=== PATIENT | female | born 1965 | race Caucasian/White ===

== ENCOUNTER → 2017-01-26 | Outpatient (CLI) | payer MEDICARE ==
--- NOTE | 2017-01-26 13:24 | RAD ---
DATE: 01/26/2017 EXAM: MAMMO LAN SCREENING BILATERAL HISTORY: Routine screening COMPARISON: None available This study was interpreted with the benefit of Computerized Aided Detection (CAD). FINDINGS: Breast Density: HETERO The breast parenchyma Is heterogeneouslyy dense, which could reduce sensitivity of mammography. Breast parenchyma level C. There is a nodular appearing mass or lesion identified in the lateral lower left breast and a small nodule identified in the right medial upper breast. IMPRESSION: Nodular appearing mass or lesion identified in the lateral lower left breast and a small nodule identified in the right medial upper breast. Recommend ultrasound of the right and left breast. BI-RADS CATEGORY: 0 INCOMPLETE: NEEDS ADDITIONAL IMAGING EVALUATION AND/OR PRIOR MAMMOGRAMS FOR COMPARISON. RECOMMENDED FOLLOW-UP: ADD ADDITIONAL IMAGING PQRS compliance statement: Patient information was entered into a reminder system with a target due date immediate recall for the next mammogram. Mammography is a sensitive method for finding small breast cancers, but it does not detect them all and is not a substitute for careful clinical examination. A negative mammogram does not negate a clinically suspicious finding and should not result in delay in biopsying a clinically suspicious abnormality. "Our facility is accredited by the [employer] Mammography Program."
--- NOTE | 2017-01-26 14:03 | RAD ---
Bone densitometry scan, 01/26/2017: History: Ovarian failure, screening The lumbar spine and right hip were examined utilizing a DEXA technique. The bone mineral density lumbar spine as measured from the L1-L4 levels is 1.25 g/sq cm. This yields a T score of 0.6 which is in the normal range. The right hip T score of 0.8 is also in the normal range. IMPRESSION: Normal bone mineral density measurements
== END | disposition home or self-care (01) ==
LOC: MAMMO 10:00
PROVIDERS: ATTEND Physician Assistant Medical
DX: Z12.31 Encounter for screening mammogram for malignant neoplasm of breast (principal); Z78.0 Asymptomatic menopausal state
CPT/HCPCS: 77063; 77080; G0202; 77067

== ENCOUNTER → 2017-05-03 | Outpatient (CLI) | payer MEDICARE ==
--- NOTE | 2017-05-03 14:38 | RAD ---
Right lower extremity venous Doppler ultrasound History: Intermittent right lower extremity swelling. Comparison: 11/16/2013. Procedure: Color Doppler, spectral Doppler, and grayscale images are obtained with and without compression in the area of the common femoral vein, superficial femoral vein - femoral vein junction, main femoral vein (superficial femoral vein) and popliteal vein. Veins of the proximal calf are also imaged. Findings: There is normal duplex flow, color flow and compressibility of all visualized vein segments. No evidence of deep venous thrombosis is present. Impression: No evidence of right lower extremity deep venous thrombosis.
== END | disposition home or self-care (01) ==
LOC: US 13:24
PROVIDERS: ATTEND Physician Assistant Medical
DX: I83.91 Asymptomatic varicose veins of right lower extremity (principal)
CPT/HCPCS: 93971

== ENCOUNTER → 2017-07-12 | Outpatient (CLI) | payer MEDICARE ==
--- NOTE | 2017-07-12 16:15 | RAD ---
DATE: 07/12/2017 EXAM: MAMMO LAN LYLE GARSIAAT, BREAST BILATERAL HISTORY: Follow-up breast nodules COMPARISON: 01/26/2017 This study was interpreted with the benefit of Computerized Aided Detection (CAD). The breast parenchyma is heterogeneously dense, which could reduce sensitivity of mammography. Breast parenchyma level C. FINDINGS: 2-D and 3-D tomosynthesis imaging was performed in CC and MLO projections. The 7 mm nodule seen posteromedially in the right breast on the previous study is unchanged. The larger, circumscribed, heterogeneous nodule seen posterolaterally in the left breast also appears to be unchanged, although it is incompletely visualized mammographically due to its far posterior addition. Internal areas of fatty density again favor the possibility that this is a fibroadenolipoma. No new breast opacities are seen. Benign type calcifications are present. No malignant microcalcifications have developed. Bilateral breast ultrasound, 07/12/2017: A targeted ultrasound exam of both breasts was performed in the areas where nodules were identified on 01/30/2017 exam. At the 1:00 location in the right breast approximately 9 cm from the nipple there is a smooth 8 x 4 x 3 mm hypoechoic nodule. It is unchanged since the previous study and is probably a fibroadenoma. At the 3:00 location in the left breast approximately 10 cm from the nipple there is a 2.2 x 1.4 x 1.2 cm oval-shaped heterogeneous nodule. Allowing for technical differences it is unchanged in size. Its margins are smooth. 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 IMPRESSION: Unchanged, probably benign bilateral breast nodules as described above. Follow-up bilateral breast ultrasound in 6 months and bilateral mammography at one year is suggested to confirm stability. BI-RADS CATEGORY: 3 PROBABLY BENIGN FINDING(S)-SHORT INTERVAL FOLLOW-UP SUGGESTED RECOMMENDED FOLLOW-UP: 6M 6 MONTH FOLLOW-UP PQRS compliance statement: Patient information was entered into a reminder system with a target due date for the next mammogram. Mammography is a sensitive method for finding small breast cancers, but it does not detect them all and is not a substitute for careful clinical examination. A negative mammogram does not negate a clinically suspicious finding and should not result in delay in biopsying a clinically suspicious abnormality. "Our facility is accredited by the [employer] Mammography Program."
== END | disposition home or self-care (01) ==
LOC: MAMMO 13:35
PROVIDERS: ATTEND Physician Assistant Medical
DX: R92.8 Other abnormal and inconclusive findings on diagnostic imaging of breast (principal)
CPT/HCPCS: 76641; 77066; G0279; 77062

== ENCOUNTER → 2018-01-12 | Outpatient (CLI) | payer MEDICARE ==
--- NOTE | 2018-01-12 11:55 | RAD ---
Bilateral breast ultrasound, 01/12/2018: History: Follow-up breast nodules A targeted ultrasound exam of both breasts was performed in areas where nodules were identified on the 07/12/2017 exam. In the right breast at the 1:00 location approximately 9 cm from the nipple there is a smooth 8 x 4 x 3 mm hypoechoic nodule. It is wider than tall. It is unchanged in size and configuration since 07/12/2017. Again, this most likely represents a fibroadenoma. In the left breast at the 3:00 location approximately 10 cm from the nipple there is an oval-shaped heterogeneous nodule measuring 2.2 cm in greatest diameter. Its margins are smooth. It has shown no significant change since 07/12/2017. IMPRESSION: Stable bilateral breast nodules. Sonographic follow-up in 6 months at the time of the patient's routine yearly mammograms is suggested. BI-RADS 3-probably benign findings
--- NOTE | 2018-01-12 15:29 | RAD ---
NECK SOFT TISSUE History: Right-sided lump inferior to the ear, occasional pain Comparison: None. Findings: Sonographic images of the site of concern on the right. Labeled as being inferior to the right ear, there is a 3.2 x 1.6 x 0.9 cm lymph node. Right parotid gland is estimated about 5.8 x 3.1 x 1.4 cm versus left 5.4 x 2.9 x 1.3 cm. There is questionable mild increased echogenicity of the right parotid gland compared with the left. Incidental note is made of thyroid nodules not fully evaluated. There is no discrete drainable fluid collection. Impression: 1. There is a nonspecific lymph node near the site of concern, normal sonographic architecture, not considered significantly enlarged. Right parotid gland is questionably slightly more echogenic and slightly larger than the left which is nonspecific. 2. Incidental note is made of thyroid nodules, not fully evaluated. Electronically signed by: Santy Polk MD (01/12/2018 3:26 PM) [id number]
== END | disposition home or self-care (01) ==
LOC: US 09:47
PROVIDERS: ATTEND Physician Assistant Medical
DX: N63.12 Unspecified lump in the right breast, upper inner quadrant (principal); N63.22 Unspecified lump in the left breast, upper inner quadrant; H93.8X1 Other specified disorders of right ear; E04.2 Nontoxic multinodular goiter
CPT/HCPCS: 76536; 76641

== ENCOUNTER → 2018-03-01 | Outpatient (CLI) | payer MEDICARE ==
--- NOTE | 2018-03-01 16:50 | RAD ---
PQRS Compliance Statement: One or more of the following individualized dose reduction techniques were utilized for this examination: 1. Automated exposure control 2. Adjustment of the mA and/or kV according to patient size 3. Use of iterative reconstruction technique CT SOFT TISSUE NECK WO CONTRST Clinical Indication: DISEASE OF THE SALIVARY GLAND. Parotid swelling. Swelling on right side of neck x2 months. Comparison: Soft tissue neck ultrasound January 12, 2018. TECHNIQUE: Helical CT imaging of the soft tissues of the neck is performed without IV contrast. Findings: Lack of IV contrast decreases sensitivity. No obvious abnormality of the posterior fossa. The visualized orbits are intact. Small left maxillary sinus mucous retention cyst or polyp. There is no air-fluid level. There is under pneumatization of the left mastoid air cells in comparison to the right. The parapharyngeal fat planes are preserved. Epiglottis and aryepiglottic folds are normal. There are subcentimeter bilateral cervical lymph nodes, there is no adenopathy. The attenuation of the right parotid gland is slightly greater than the left. The parotid glands are similar in size. There is no inflammation surrounding the parotid glands. A sialolith is not identified. The submandibular glands are symmetric. There is a 12 mm right thyroid nodule. There is a 17 mm left thyroid nodule, incompletely imaged. The lung apices are not imaged. The cervical spine alignment is maintained. There is degenerative spondylosis of C5/C6. Small ossification along the nuchal ligament. IMPRESSION: 1. The right parotid gland is slightly greater in attenuation than the contralateral side but is similar in size. There is no sialolith or intraparotid mass. There is no surrounding inflammation but cannot exclude low-level parotitis. 2. Bilateral thyroid nodules. Electronically signed by: Josemanuel Goldman MD (03/01/2018 4:47 PM) [id number]
--- NOTE | 2018-03-01 17:08 | RAD ---
THYROID ULTRASOUND History: Thyroid nodules. Comparison: Soft tissue neck ultrasound January 12, 2018. Technique: Multiple grayscale and color Doppler images of the thyroid gland were obtained. Findings: Measurements in length, AP (height), and transverse (width), respectively, unless otherwise stated. Isthmus measures 4 mm and is homogeneous. The right thyroid lobe measures 4.5 x 1.8 x 1.8 cm. In the mid right thyroid lobe there is a TR3 nodule measuring 1.7 x 1.1 x 1.3 cm. There is peripheral hypervascularity. The left thyroid lobe measures 4.5 x 1.6 x 1.6 cm. In the inferior left thyroid lobe there is a solid hypoechoic nodule that is taller than wide, smoothly marginated, and contains a tiny calcification. Classified as TR5. Nodule measures 2 x 1.5 x 1.7 cm. Color Doppler demonstrates peripheral hypervascularity. ACR Thyroid Imaging, Reporting And Data System (TI-RADS): White Paper Of The ACR TI-RADS Committee. Journal of the [employer], volume 14, issue 5, pages 587-595 (August 2016). IMPRESSION: 1. TR5 nodule of the inferior left thyroid lobe. Recommend further evaluation with ultrasound-guided FNA. 2. Dominant nodule of the mid right thyroid lobe. Recommend ultrasound follow-up in 12 months. Electronically signed by: Josemanuel Goldman MD (03/01/2018 5:05 PM) [id number]
== END | disposition home or self-care (01) ==
LOC: US 12:27
PROVIDERS: ATTEND Otolaryngology
DX: K11.9 Disease of salivary gland, unspecified (principal)
CPT/HCPCS: 70490; 76536

== ENCOUNTER → 2018-03-14 | Outpatient (CLI) | payer MEDICARE ==
[2018-03-15 13:43] LABS: FREE T4 1.13 ng/dL (0.76-1.46); THYROID STIM HORMONE (TSH) 0.806 uIU/mL (0.358-3.740)
== END | disposition home or self-care (01) ==
LOC: LAB 13:10
PROVIDERS: ATTEND Otolaryngology
DX: E04.1 Nontoxic single thyroid nodule (principal)
CPT/HCPCS: 84439; 84443

== ENCOUNTER 2018-06-05 15:32 | Emergency (ER) | payer MEDICARE ==
[~2018-06-05] VITALS: Ht 152.4 cm; Wt 104.3 kg
[2018-06-05] MEDS ORDERED: IV NORMAL SALINE 1,000ML 1,000 ML IV ONE (16:30)
[2018-06-05 16:41] LABS: BASO # 0.1 x10^3/uL (0.0-0.2); BASO % 1 % (0-3); EOS # 0.1 x10^3/uL (0.0-0.7); EOS % 1 % (0-3); HEMATOCRIT 38.6 % (36.0-47.0); HEMOGLOBIN 12.4 g/dL (12.0-15.5); LYMPH # 0.5 x10^3/uL (1.0-4.8); LYMPH % 6 % (24-48); MEAN CORPUSCULAR HEMOGLOBIN 25 pg (25-35); MEAN CORPUSCULAR HGB CONC 32 g/dL (31-37); MEAN CORPUSCULAR VOLUME 77 fL (79-100); MONO # 0.8 x10^3/uL (0.0-1.1); MONO % 8 % (0-9); NEUT # 8.1 x10^3uL (1.8-7.7); NEUT % 84 % (31-73); PLATELET COUNT 350 x10^3/uL (140-400); RED BLOOD COUNT 5.05 x10^6/uL (3.50-5.40); RED CELL DISTRIBUTION WIDTH 16.6 % (11.5-14.5); WHITE BLOOD COUNT 9.6 x10^3/uL (4.0-11.0)
[2018-06-05] MEDS ORDERED: ONDANSETRON PF 4 MG/2 ML VIAL. IV ONE (16:45)
[2018-06-05 16:54] LABS: ALBUMIN 3.8 g/dL (3.4-5.0); ALBUMIN/GLOBULIN RATIO 0.8 (1.0-1.7); CALCIUM 9.3 mg/dL (8.5-10.1); CREATININE 0.6 mg/dL (0.6-1.0); GFR 104.2; POTASSIUM 4.5 mmol/L (3.5-5.1); TOTAL BILIRUBIN 0.4 mg/dL (0.2-1.0); TOTAL PROTEIN 8.4 g/dL (6.4-8.2)
--- NOTE | 2018-06-05 16:59 | PHYS DOC ---
Past History Past Medical History: Asthma Past Surgical History: Knee Replacement Alcohol Use: None Drug Use: None Adult General Chief Complaint Chief Complaint: FEVER HPI HPI 53-year-old female presents with fever for one half days. The patient also has a nonproductive cough, body aches, headache. Patient has been around several people were diagnosed with influenza. She has taken 3 g of Tylenol today but still has a fever of 102. She denies dysuria or increased urine frequency. Review of Systems Review of Systems Constitutional: Fever, chills[] Eyes: Denies change in visual acuity, redness, or eye pain [] HENT: Nasal congestion[] Respiratory: Cough without shortness of breath [] Cardiovascular: No additional information not addressed in HPI [] GI: Nausea, one episode of vomiting. Denies abdominal pain bloody stools or diarrhea [] : Denies dysuria or hematuria [] Musculoskeletal: Denies back pain or joint pain [] Integument: Denies rash or skin lesions [] Neurologic: Denies headache, focal weakness or sensory changes [] Endocrine: Denies polyuria or polydipsia [] All other systems were reviewed and found to be within normal limits, except as documented in this note. Current Medications Current Medications Current Medications Medications (Trade) Dose Ordered Sig/Chay Start Time Stop Time Status Last Admin Dose Admin Ondansetron HCl (Zofran) 4 mg 1X ONCE 06/05/18 16:45 06/05/18 16:46 DC 06/05/18 16:29 4 MG Sodium Chloride 1,000 ml @ 1,000 mls/hr 1X ONCE 06/05/18 16:30 06/05/18 17:29 06/05/18 16:30 1,000 MLS/HR Allergies Allergies Allergies Coded Allergies Type Severity Reaction Last Updated Verified Sulfa (Sulfonamide Antibiotics) Allergy Intermediate RASH 06/05/18 Yes aspirin Allergy Intermediate Rash 06/05/18 Yes Physical Exam Physical Exam Constitutional: Well developed, well nourished, no acute distress, non-toxic appearance. [] HENT: Normocephalic, atraumatic, bilateral external ears normal, oropharynx moist, no oral exudates, nose congested. [] Eyes: PERRLA, EOMI, conjunctiva normal, no discharge. [] Neck: Normal range of motion, no tenderness, supple, no stridor. [] Cardiovascular:Heart rate regular rhythm, no murmur [] Lungs & Thorax: Bilateral breath sounds clear to auscultation [] Abdomen: Bowel sounds normal, soft, no tenderness, no masses, no pulsatile masses. [] Skin: Warm, dry, no erythema, no rash. [] Back: No tenderness, no CVA tenderness. [] Extremities: No tenderness, no cyanosis, no clubbing, ROM intact, no edema. [] Neurologic: Alert and oriented X 3, normal motor function, normal sensory function, no focal deficits noted. [] Psychologic: Affect normal, judgement normal, mood normal. [] Current Patient Data Vital Signs Vital Signs Date Time Temp Pulse Resp B/P (MAP) Pulse Ox O2 Delivery O2 Flow Rate FiO2 06/05/18 16:12 100.3 120 18 96 Room Air Lab Results Laboratory Tests Test 06/05/18 16:25 White Blood Count 9.6 x10^3/uL (4.0-11.0) Red Blood Count 5.05 x10^6/uL (3.50-5.40) Hemoglobin 12.4 g/dL (12.0-15.5) Hematocrit 38.6 % (36.0-47.0) Mean Corpuscular Volume 77 fL (79-100) L Mean Corpuscular Hemoglobin 25 pg (25-35) Mean Corpuscular Hemoglobin Concent 32 g/dL (31-37) Red Cell Distribution Width 16.6 % (11.5-14.5) H Platelet Count 350 x10^3/uL (140-400) Neutrophils (%) (Auto) 84 % (31-73) H Lymphocytes (%) (Auto) 6 % (24-48) L Monocytes (%) (Auto) 8 % (0-9) Eosinophils (%) (Auto) 1 % (0-3) Basophils (%) (Auto) 1 % (0-3) Neutrophils # (Auto) 8.1 x10^3uL (1.8-7.7) H Lymphocytes # (Auto) 0.5 x10^3/uL (1.0-4.8) L Monocytes # (Auto) 0.8 x10^3/uL (0.0-1.1) Eosinophils # (Auto) 0.1 x10^3/uL (0.0-0.7) Basophils # (Auto) 0.1 x10^3/uL (0.0-0.2) Sodium Level 136 mmol/L (136-145) Potassium Level 4.5 mmol/L (3.5-5.1) Chloride Level 99 mmol/L (98-107) Carbon Dioxide Level 27 mmol/L (21-32) Anion Gap 10 (6-14) Blood Urea Nitrogen 9 mg/dL (7-20) Creatinine 0.6 mg/dL (0.6-1.0) Estimated GFR (Cockcroft-Gault) 104.2 BUN/Creatinine Ratio 15 (6-20) Glucose Level 101 mg/dL (70-99) H Calcium Level 9.3 mg/dL (8.5-10.1) Total Bilirubin 0.4 mg/dL (0.2-1.0) Aspartate Amino Transferase (AST) 22 U/L (15-37) Alanine Aminotransferase (ALT) 13 U/L (14-59) L Alkaline Phosphatase 97 U/L (46-116) Total Protein 8.4 g/dL (6.4-8.2) H Albumin 3.8 g/dL (3.4-5.0) Albumin/Globulin Ratio 0.8 (1.0-1.7) L EKG EKG [] Radiology/Procedures Radiology/Procedures [] Course & Med Decision Making Course & Med Decision Making Pertinent Labs and Imaging studies reviewed. (See chart for details) Patient's labs are unremarkable. Her influenza was negative. The patient has been given 1 L normal saline and 4 mg of Zofran [] Dragon Disclaimer Dragon Disclaimer This electronic medical record was generated, in whole or in part, using a voice recognition dictation system. Departure Departure: Impression: Primary Impression: Viral syndrome Disposition: HOME, SELF-CARE Condition: STABLE Referrals: MARY MILLS (PCP) Patient Instructions: Viral Syndrome GILBERTO AMBROSE DO Jun 05, 2018 16:59
[2018-06-05 17:06] LABS: INFLUENZA A PATIENT NEGATIVE (NEGATIVE); INFLUENZA B PATIENT NEGATIVE (NEGATIVE)
--- NOTE | 2018-06-05 17:09 | RAD ---
Exam performed: 2 views of the chest. Indication: Fever, cough, possible influenza Date of Service: 06/05/2018 4:45 PM . Comparison : None available Findings: PA and lateral radiographs of the chest reveal a normal cardiomediastinal contour. The lungs are clear. No pleural fluid is seen. The visualized osseous structures are unremarkable. Impression: No acute cardiopulmonary process seen. Electronically signed by: Kajal Ott MD (06/05/2018 5:06 PM) [place] [id number]
[2018-06-05] MEDS ORDERED: diphenhydrAMINE 50 MG/ML VIAL IVP ONE (18:15)
[2018-06-05] MEDS ORDERED: METOCLOPRAMIDE HCL 10 MG/2 ML VIAL. IV ONE (18:15)
[2018-06-05 19:01] VITALS: BP 178/76
--- NOTE | 2018-06-06 14:16 | EKG ---
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
== END 2018-06-05 19:00 | disposition home or self-care (01) ==
LOC: ER 15:32
DX: B34.9 Viral infection, unspecified (principal); R11.2 Nausea with vomiting, unspecified; J45.909 Unspecified asthma, uncomplicated; Z88.2 Allergy status to sulfonamides; Z88.6 Allergy status to analgesic agent
CPT/HCPCS: 36415; 71046; 80053; 85025; 87040; 87804; 93005; 96361; 96374; 96375; 99284; J1200; J2405; J2765; J7030

== ENCOUNTER → 2019-02-13 | Outpatient (CLI) | payer MEDICARE ==
--- NOTE | 2019-02-13 10:24 | RAD ---
DATE: 02/13/2019 EXAM: MAMMO LAN SCREENING BILATERAL HISTORY: Routine screening COMPARISON: 01/26/2017, 07/12/2017 mammographic exams This study was interpreted with the benefit of Computerized Aided Detection (CAD). Breast Density: HETERO The breast parenchyma is heterogenously dense, which could reduce sensitivity of mammography. Breast parenchyma level C. FINDINGS: Small mass at the right inner breast at the posterior aspect is unchanged. Asymmetry at the posterior aspect of the left upper breast is stable. No new mass. No suspicious calcification or distortion. IMPRESSION: Stable BI-RADS CATEGORY: 1 NEGATIVE RECOMMENDED FOLLOW-UP: 12M 12 MONTH FOLLOW-UP PQRS compliance statement: Patient information was entered into a reminder system with a target due date for the next mammogram. Mammography is a sensitive method for finding small breast cancers, but it does not detect them all and is not a substitute for careful clinical examination. A negative mammogram does not negate a clinically suspicious finding and should not result in delay in biopsying a clinically suspicious abnormality. "Our facility is accredited by the [employer] Mammography Program."
== END | disposition home or self-care (01) ==
LOC: MAMMO 09:38
PROVIDERS: ATTEND Physician Assistant Medical
DX: Z12.31 Encounter for screening mammogram for malignant neoplasm of breast (principal); N64.89 Other specified disorders of breast; N63.10 Unspecified lump in the right breast, unspecified quadrant
CPT/HCPCS: 77063; 77067

== ENCOUNTER 2019-03-28 12:35 | Inpatient (IN) | payer MEDICARE ==
[~2019-03-28] VITALS: Ht 162.6 cm; Wt 108.9 kg
[2019-03-28] MEDS ORDERED: IPRATRPIUM/ALBUTEROL 0.5/2.5MG 3 ML NEBU. ONE (12:41)
[2019-03-28] MEDS ORDERED: methylPREDNISolone SOD SUCC PF 125 MG/2 ML VIAL. IV ONE (13:00)
[2019-03-28] MEDS ORDERED: IPRATRPIUM/ALBUTEROL 0.5/2.5MG 3 ML NEBU. NEB ONE ×2 (13:00→13:15)
--- NOTE | 2019-03-28 13:02 | PHYS DOC ---
Past History Past Medical History: Asthma, Other (leukemia) Past Surgical History: Knee Replacement Alcohol Use: None Drug Use: None Adult General Chief Complaint Chief Complaint: SHORTNESS OF BREATH [facility] HPI Patient is a 54-year-old female who presented to ER today for evaluation of trouble breathing since yesterday evening. Patient has history asthma, she had used her treatment home but did not get any better. Patient is not on oxygen at home. She is a nonsmoker. She denies any fever. Patient denies any chest pain. No abdominal pain, no nausea vomiting. All other ROS is negative unless otherwise noted in HPI Review of Systems Review of Systems See above Current Medications Current Medications Current Medications Medications (Trade) Dose Ordered Sig/Chay Start Time Stop Time Status Last Admin Dose Admin Albuterol/ Ipratropium (Duoneb) 3 ml 1X ONCE 03/28/19 13:00 03/28/19 13:01 DC Methylprednisolone Sodium Succinate (SOLU-Medrol 125MG VIAL) 125 mg 1X ONCE 03/28/19 13:00 03/28/19 13:01 DC Allergies Allergies Allergies Coded Allergies Type Severity Reaction Last Updated Verified Sulfa (Sulfonamide Antibiotics) Allergy Intermediate RASH 06/05/18 Yes aspirin Allergy Intermediate Rash 06/05/18 Yes Physical Exam Physical Exam See above Constitutional: Well developed, well nourished, MILD acute distress, non-toxic appearance. [] HENT: Normocephalic, atraumatic, bilateral external ears normal, oropharynx moist, no oral exudates, nose normal. [] Eyes: PERRLA, EOMI, conjunctiva normal, no discharge. [] Neck: Normal range of motion, no tenderness, supple, no stridor. [] Cardiovascular:Heart rate regular rhythm, no murmur [] Lungs & Thorax: diffused wheezing, with decreased air movement, mild respiratory distress, speak in words. Abdomen: Bowel sounds normal, soft, no tenderness, no masses, no pulsatile masses. [] Skin: Warm, dry, no erythema, no rash. [] Back: No tenderness, no CVA tenderness. [] Extremities: No tenderness, no cyanosis, no clubbing, ROM intact, no edema. [] Neurologic: Alert and oriented X 3, normal motor function, normal sensory function, no focal deficits noted. [] Psychologic: Affect normal, judgement normal, mood normal. [] EKG EKG [] Radiology/Procedures Radiology/Procedures [][place] [id number] IMAGING REPORT Signed PATIENT: ALLEN RAE ACCOUNT: [id number] : 1965 LOCATION: ER AGE: 54 SEX: F EXAM STATUS: REG ER ORD. PHYSICIAN: JESSICA LEE DO REASON: soa, cough PROCEDURE: CHEST AP ONLY EXAM: Chest, single view. HISTORY: Shortness of breath. Cough. COMPARISON: 06/05/2018 FINDINGS: A frontal view of the chest is obtained. There is diffuse interstitial infiltrate. There is no consolidation, pleural effusion or pneumothorax. The heart is normal in size. IMPRESSION: Diffuse interstitial infiltrate. Electronically signed by: Kenia Bonilla MD (03/28/2019 1:25 PM) [facility] DICTATED AND SIGNED BY: KENIA BONILLA MD DATE: 03/28/19 1325 CC: JESSICA LEE DO; MARY MILLS ~ Course & Med Decision Making Course & Med Decision Making Pertinent Labs and Imaging studies reviewed. (See chart for details) [] Dragon Disclaimer Dragon Disclaimer This electronic medical record was generated, in whole or in part, using a voice recognition dictation system. Departure Departure: Impression: Primary Impression: Asthma Additional Impressions: Pneumonia and influenza Influenza B Disposition: ADMITTED INPATIENT Admitting Physician: Nancy Strauss Condition: STABLE Referrals: MARY MILLS (PCP) Problem Qualifiers JESSICA LEE DO Mar 28, 2019 13:02
[2019-03-28 13:09] LABS: BASO # 0.1 x10^3/uL (0.0-0.2); BASO % 1 % (0-3); EOS # 0.2 x10^3/uL (0.0-0.7); EOS % 1 % (0-3); HEMATOCRIT 38.3 % (36.0-47.0); HEMOGLOBIN 12.3 g/dL (12.0-15.5); LYMPH # 1.2 x10^3/uL (1.0-4.8); LYMPH % 9 % (24-48); MEAN CORPUSCULAR HEMOGLOBIN 25 pg (25-35); MEAN CORPUSCULAR HGB CONC 32 g/dL (31-37); MEAN CORPUSCULAR VOLUME 78 fL (79-100); MONO # 0.9 x10^3/uL (0.0-1.1); MONO % 7 % (0-9); NEUT # 10.5 x10^3uL (1.8-7.7); NEUT % 82 % (31-73); PLATELET COUNT 345 x10^3/uL (140-400); RED CELL DISTRIBUTION WIDTH 15.8 % (11.5-14.5); WHITE BLOOD COUNT 12.8 x10^3/uL (4.0-11.0)
[2019-03-28] MEDS ORDERED: ACETAMINOPHEN 325 MG TABLET PO ONE (13:12)
[2019-03-28 13:14] LABS: CALCIUM 8.6 mg/dL (8.5-10.1); CREATININE 0.7 mg/dL (0.6-1.0); GFR 86.9; POTASSIUM 4.2 mmol/L (3.5-5.1)
[2019-03-28 13:19] LABS: ALBUMIN 3.5 g/dL (3.4-5.0); ALBUMIN/GLOBULIN RATIO 0.8 (1.0-1.7); MAGNESIUM 1.8 mg/dL (1.8-2.4); TOTAL BILIRUBIN 0.5 mg/dL (0.2-1.0); TOTAL PROTEIN 8.1 g/dL (6.4-8.2)
[2019-03-28] MEDS ORDERED: ONDANSETRON PF 4 MG/2 ML VIAL. ONE (13:28)
--- NOTE | 2019-03-28 13:28 | RAD ---
EXAM: Chest, single view. HISTORY: Shortness of breath. Cough. COMPARISON: 06/05/2018 FINDINGS: A frontal view of the chest is obtained. There is diffuse interstitial infiltrate. There is no consolidation, pleural effusion or pneumothorax. The heart is normal in size. IMPRESSION: Diffuse interstitial infiltrate. Electronically signed by: Kenia Bustillos MD (03/28/2019 1:25 PM) [place] [id number]
[2019-03-28] MEDS ORDERED: IV NORMAL SALINE 1,000ML 1,000 ML IV ONE (13:30)
[2019-03-28] MEDS ORDERED: ONDANSETRON PF 4 MG/2 ML VIAL. IVP ONE (13:30)
[2019-03-28] MEDS ORDERED: ACETAMINOPHEN 500 MG TABLET PO ONE (13:30)
[2019-03-28 14:14] LABS: INFLUENZA A PATIENT NEGATIVE (NEGATIVE); INFLUENZA B PATIENT POSITIVE (NEGATIVE)
[2019-03-28] MEDS ORDERED: OSELTAMIVIR 75 MG CAPSULE PO ONE (14:30)
[2019-03-28] MEDS: IV NORMAL SALINE 1,000ML 1,000 ML IV SCH (15:01)
[2019-03-28] MEDS ORDERED: ONDANSETRON PF 4 MG/2 ML VIAL. IV PRN (15:15)
[2019-03-28 16:23] VITALS: BP 110/60
--- NOTE | 2019-03-28 16:30 | NUR ---
The patient, ALLEN RAE, 54 y/o, F admitted by VENITA LANDRUM MD, was given written information regarding hospital policies, unit procedures and contact persons. Valuables were checked and left in room. Patient arrived from ER to room 103, alert and oriented x3. Able to make needs known, states she is feeling much better since arrival to ER. Patient resting in bed at this time and denies complaints of pain or discomfort at this time. Patient able to ambulate independelty to restroom without difficulty. Continues to require O2 therapy due to increased SOA. Awaiting for Dr Landrum to see patient.
[2019-03-28] MEDS ORDERED: FAMO40TA4 PO (16:36)
[2019-03-28] MEDS ORDERED: CYCL-331 PO (16:36)
[2019-03-28] MEDS ORDERED: TRAZ-125 PO (16:36)
[2019-03-28] MEDS ORDERED: PROAIR RESPICL90 MCG INH (16:36)
[2019-03-28] MEDS ORDERED: ALBU2.5V5 INH (16:36)
[2019-03-28] MEDS ORDERED: ALBUTEROL SULFATE 2.5 MG/3 ML NEBU. INH PRN (17:45)
--- NOTE | 2019-03-28 18:45 | HP ---
ADMIT DATE: 03/28/2019 HISTORY OF PRESENT ILLNESS: The patient is a 54-year-old female patient who came to the Emergency Room complaining of feeling generally unwell, was started last night, did have cough, shortness of breath, fever, chest pain. She is known to have bronchial asthma. She used her treatment at home, but did not get any better. She is not on oxygen. She is a nonsmoker. She did have fever, but denied any nausea or vomiting. She was evaluated in the Emergency Room and on arrival, her temperature was up to 103 Fahrenheit. She was noted to have leukocytosis. Her chemistry was unremarkable. Lactic acid was only 1.5. Her influenza B was positive. The patient stated that she does not get flu shot. Her chest x-ray showed that she has also diffuse interstitial infiltrate. There is no consolidation, pleural effusion or pneumothorax. The heart size is normal. The patient was admitted with influenza B, community-acquired pneumonia and bronchial asthma exacerbation and was started on Tamiflu as well as IV Levaquin. She was given Solu-Medrol 125 mg together with albuterol and Atrovent and levofloxacin and Tamiflu and was admitted to continue with IV fluid to continue all this treatment. PAST MEDICAL HISTORY: Significant for bronchial asthma, generalized osteoarthritis. PAST SURGICAL HISTORY: Significant for right total knee arthroplasty, total abdominal hysterectomy, carpal tunnel release, trigger finger surgery, appendectomy, esophagogastroduodenoscopy and colonoscopy. ALLERGIES: She is allergic to ASPIRIN AND SULFA DRUGS. MEDICATIONS: She is currently on following medications: She is on albuterol sulfate by nebulizer and inhaler 2 puffs 4 times a day, cyclobenzaprine 10 mg at bedtime, trazodone 100 mg at bedtime. She is on famotidine 40 mg daily for gastroesophageal reflux disease. FAMILY HISTORY: She has 2 sisters and 3 brothers, 2 older brothers and 1 younger brother and 1 older sister and they seemed to be healthy. Her father at age of 74 because of asthma and congestive heart failure. Mother at age of 69 because of CVA and intracranial hemorrhage. SOCIAL HISTORY: She is , has 2 sons and 2 daughters. She never smoked, does not drink alcohol or use any recreational drugs. 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 However, she is currently on disability. REVIEW OF SYSTEMS: The patient denies any blurring of vision, cataract, glaucoma or macular degeneration. Denied any earache, tinnitus or sensorineural deafness. Denied any nosebleeds, stuffy nose or postnasal drip. Denied any sore throat, sore tongue, toothache, hoarseness of voice or difficulty swallowing. Denied any hematemesis, melena or hematochezia. Denied any dysuria, frequency or hematuria. Denied any orthopnea, paroxysmal nocturnal dyspnea. She did have cough with scanty sputum. Did have chills, rigors or fever, but denied any dizziness or lightheadedness. PHYSICAL EXAMINATION: GENERAL: On arrival to the Emergency Room, she looked well and was clearly in no apparent respiratory distress. No pallor, jaundice, cyanosis or thyromegaly. No jugular venous distention. No limb edema. VITAL SIGNS: Her heart rate was 130, blood pressure was 134/62, temperature was 103, respiratory rate was 24 and oxygen saturation was 86% on room air. HEAD, EYES, EARS, NOSE AND THROAT: Showed normocephalic, atraumatic. NECK: Supple. HEART: Showed normal first and second heart sounds with no gallop, rub or murmur. CHEST: Clear to auscultation. No crepitation or rhonchi. ABDOMEN: Distended, soft. The chest showed central trachea, equal bilateral expansion, air entry, vesicular sounds with diffuse wheezing and decreased air movement and mild respiratory distress. She was unable to finish sentence when she arrived to the Emergency Room. ABDOMEN: Soft, nontender. No guarding or rigidity. No organomegaly. All hernial orifice intact. Bowel sounds normal. NEUROLOGIC: She was alert, oriented x 3 with normal motor and sensory function. Her affect, judgment and mood abnormal. She has had an EKG, which apparently showed sinus tachycardia. Her chest x-ray showed that there is diffuse interstitial infiltrate. Her lab work showed her white cell count to be 12,800, hemoglobin 12.3, hematocrit 38, MCV 78 and platelet count 345,000. Her chemistry showed a serum sodium 135, potassium 4.2, chloride 98, bicarbonate 29, anion gap of 8, BUN 11, creatinine 0.7, estimated GFR was 87 mL per minute. Her glucose was 102, calcium was 8.6, magnesium was 1.8, lactic acid was 1.5. Total bilirubin, AST, ALT, alkaline phosphatase were normal. Total protein was 8.1, albumin 3.5 and her influenza A was negative. Influenza B was positive. ASSESSMENT AND PLAN: The patient was admitted with diagnosis of influenza B community-acquired pneumonia as well as asthma exacerbation. The patient will be continued on levofloxacin, Tamiflu, steroids and inhalers together with her other home medications. VENITA LANDRUM MD DR: AGUSTINA/ernesto JOB#: [id number] / [id number]
[2019-03-28 19:02] VITALS: BP 145/79
--- NOTE | 2019-03-28 19:32 | NUR ---
Dr LANDRUM AWARE OF POSITIVE SEPSIS SCREEN.
[2019-03-28] MEDS: LACTOBACILLUS RHAMNOSUS GG 1 CAPSULE. PO SCH (20:29)
[2019-03-28] MEDS: OSELTAMIVIR 75 MG CAPSULE PO SCH (20:30)
[2019-03-28] MEDS: traZODone 100 MG TABLET. PO SCH (20:30)
[2019-03-28] MEDS: CYCLOBENZAPRINE 10 MG TABLET. PO SCH (20:30)
[2019-03-28] MEDS: methylPREDNISolone SOD SUCC PF 40 MG/ML VIAL. IV SCH (21:46)
[2019-03-28 22:43] VITALS: BP 137/76
[2019-03-29] MEDS: IPRATRPIUM/ALBUTEROL 0.5/2.5MG 3 ML NEBU. NEB SCH ×5 (00:37→21:52)
[2019-03-29] MEDS: IV NORMAL SALINE 1,000ML 1,000 ML IV SCH ×2 (00:40→09:07)
[2019-03-29] MEDS: methylPREDNISolone SOD SUCC PF 40 MG/ML VIAL. IV SCH (05:15)
[2019-03-29 05:30] VITALS: BP 155/77
[2019-03-29 07:41] LABS: HEMATOCRIT 36.7 % (36.0-47.0); HEMOGLOBIN 11.9 g/dL (12.0-15.5); RED BLOOD COUNT 4.68 x10^6/uL (3.50-5.40); RED CELL DISTRIBUTION WIDTH 15.8 % (11.5-14.5); WHITE BLOOD COUNT 10.9 x10^3/uL (4.0-11.0)
[2019-03-29 08:05] LABS: ALBUMIN 3.1 g/dL (3.4-5.0); ALBUMIN/GLOBULIN RATIO 0.7 (1.0-1.7); CALCIUM 8.5 mg/dL (8.5-10.1); CREATININE 0.6 mg/dL (0.6-1.0); GFR 103.8; POTASSIUM 3.9 mmol/L (3.5-5.1); TOTAL BILIRUBIN 0.2 mg/dL (0.2-1.0); TOTAL PROTEIN 7.6 g/dL (6.4-8.2)
--- NOTE | 2019-03-29 08:58 | NUR ---
IP: Pt is influenza + requiring droplet precautions for 7 days and 24 hours without a fever, whichever is longest.
[2019-03-29] MEDS: LACTOBACILLUS RHAMNOSUS GG 1 CAPSULE. PO SCH ×2 (09:07→20:26)
[2019-03-29] MEDS: FAMOTIDINE 20 MG TABLET PO SCH (09:07)
[2019-03-29] MEDS: OSELTAMIVIR 75 MG CAPSULE PO SCH ×2 (09:07→20:26)
[2019-03-29 11:45] VITALS: BP 148/78
--- NOTE | 2019-03-29 12:44 | NUR ---
Dr LANDRUM HERE TO SEE PATINET, PATIENT DOING MUCH BETTER TODAY. RESTING IN BED AT THIS TIME, DENIES COMPLAINTS AND IS FEELING MUCH BETTER THIS MORNING. CONTINUING IV FLUIDS AND TAMIFLU.
--- NOTE | 2019-03-29 12:55 | PN ---
DATE: 03/29/2019 SUBJECTIVE: The patient is resting, slightly propped up in bed, no apparent distress. She is awake, alert. On questioning her, she stated she is feeling much better. She is now maintaining her oxygen at 95% on room air. She has no more wheezing. She is afebrile. PHYSICAL EXAMINATION: GENERAL: When I examined her, she looked well and was clearly in no apparent respiratory distress, slightly pale, but no jaundice, cyanosis or thyromegaly. No jugular venous distension. No limb edema. VITAL SIGNS: Her heart rate was 100, blood pressure was 155/77, temperature was 97.5, respiratory rate 20, and oxygen saturation was 95% on room air. HEAD, EYES, EARS, NOSE AND THROAT: Showed normocephalic, atraumatic. NECK: Supple. HEART: Showed normal first and second heart sounds. No gallop or murmur. CHEST: Clear to auscultation. No crepitation or rhonchi. ABDOMEN: Distended, soft, nontender. NEUROLOGIC: She is awake, alert, responding appropriately. All cranial nerves intact. She moves extremities without difficulty. She ambulates without assistance or assistive devices. Her intake over the last 24 hours was 1300, no output was recorded. LABORATORY DATA: Her lab work this morning showed her white cell count is down to 10,900, hemoglobin 11.9, hematocrit 36, MCV 78 and her platelet count 327,000. Her chemistry showed a serum sodium 136, potassium 3.9, chloride 102, bicarbonate 25, anion gap of 9, BUN 11, creatinine was 0.6, and estimated GFR was 104 mL per minute. Her glucose 151, calcium was 8.5. Total bilirubin, AST, ALT, alkaline phosphatase were normal. Total protein was 7.6, albumin 3.1. ASSESSMENT: 1. Influenza B. 2. Community-acquired pneumonia. 3. Bronchial asthma exacerbation. PLAN: Plan is to continue with oral Tamiflu. Continue with IV levofloxacin. Continue with steroids and inhalers. Continue with physical and occupational therapy. VENITA LANDRUM MD DR: AGUSTINA/ernesto JOB#: [id number] / [id number]
[2019-03-29 15:25] VITALS: BP 139/64
[2019-03-29 20:00] VITALS: BP 115/59
[2019-03-29] MEDS: traZODone 100 MG TABLET. PO SCH (20:26)
[2019-03-29] MEDS: CYCLOBENZAPRINE 10 MG TABLET. PO SCH (20:26)
[2019-03-30] MEDS: IPRATRPIUM/ALBUTEROL 0.5/2.5MG 3 ML NEBU. NEB SCH ×2 (05:48→10:54)
[2019-03-30 05:57] VITALS: BP 117/67
[2019-03-30] MEDS ORDERED: predniSONE 20 MG TABLET PO SCH (09:00)
[2019-03-30] MEDS: FAMOTIDINE 20 MG TABLET PO SCH (09:36)
[2019-03-30] MEDS: LACTOBACILLUS RHAMNOSUS GG 1 CAPSULE. PO SCH (09:36)
[2019-03-30] MEDS: OSELTAMIVIR 75 MG CAPSULE PO SCH (09:36)
[2019-03-30 10:14] VITALS: BP 138/60
[2019-03-30] MEDS ORDERED: OSEL75CA PO (14:18)
[2019-03-30] MEDS ORDERED: LEVO750T5 PO (14:18)
--- NOTE | 2019-03-30 14:44 | DS ---
DATE OF DISCHARGE: 03/30/2019 HOSPITAL COURSE: The patient is a 54-year-old, female patient who was admitted with recurrent bouts of cough, shortness of breath, fever, chest pain. She is known to have bronchial asthma. She used her treatment at home, but without much improvement. On arrival to the Emergency Room, she was febrile with temperature of 103 Fahrenheit. Further evaluation showed that she was positive for influenza B and her chest x-ray showed she has community-acquired pneumonia and was admitted with influenza B, community-acquired pneumonia and bronchial asthma exacerbation. She was started on IV Levaquin as well as oral Tamiflu as well as IV Solu-Medrol and she did actually very well. She has been afebrile since admission and had no more cough or phlegm, no shortness of breath, no chest tightness or wheezing, and a decision was made to discharge her home to continue treatment with oral Tamiflu as well as levofloxacin on a tapering course of steroids. PHYSICAL EXAMINATION: GENERAL: When I examined her this afternoon, she was resting slightly propped up in bed, in no apparent respiratory distress. No pallor, jaundice, cyanosis, or thyromegaly. No jugular venous distention. No limb edema. VITAL SIGNS: Her heart rate was 105, blood pressure was 128/68, temperature was 99.8, respiratory rate 20, and oxygen saturation was 95% on room air. HEAD, EYES, EARS, NOSE, AND THROAT: Normocephalic, atraumatic. NECK: Supple. HEART: Showed normal first and second heart sounds with no gallop, rub, or murmur. CHEST: Clear to auscultation. No crepitation or rhonchi. ABDOMEN: Distended, soft, nontender. No guarding or rigidity. No organomegaly. All hernial orifice intact. Bowel sounds normal. NEUROLOGIC: She is awake, alert, responding appropriately. All cranial nerves intact. EXTREMITIES: She moves extremities without difficulty. She ambulates without assistance or assistive devices. LABORATORY DATA: Showed a white cell count of 10,900, hemoglobin 12, hematocrit 36, MCV 78, and platelet count of 327,000. Her chemistry showed a serum sodium 136, potassium 3.9, chloride 102, bicarbonate 25, anion gap of 9, BUN 11, creatinine 0.6. DISCHARGE MEDICATIONS: She was discharged home to continue on Tamiflu 75 mg twice a day for 2 more days and levofloxacin 750 mg tablet once a day for 7 more days. Continue with albuterol sulfate 2.5 mg 3 mL by nebulizer every 6 hours, albuterol inhaler 2 puffs 4 times a day as needed, Flexeril 10 mg at bedtime, famotidine 40 mg daily, and trazodone 100 mg at bedtime for insomnia. FINAL DISCHARGE DIAGNOSES: Influenza B community-acquired pneumonia and bronchial asthma exacerbation. She will also be discharged on a tapering course of steroids. VENITA LANDRUM MD DR: AGUSTINA/ernesto JOB#: [id number] / [id number]
--- NOTE | 2019-03-30 15:12 | NUR ---
Pt discharged home for self care. Pt given written and verbal discharge, follow up and medication instructions. verbal understanding received from pt. Pt iv discontinued, pressure dressing applied, no complications. Pt left unit in stable condition via wc accompanied by this nurse and spouse.
== END 2019-03-30 15:00 | disposition home or self-care (01) | DRG 202 ==
LOC: ER 12:35 → 1 SOUTH 15:33
PROVIDERS: ADMIT Internal Medicine; ATTEND Internal Medicine
DX: J45.901 Unspecified asthma with (acute) exacerbation (principal); J10.00 Influenza due to other identified influenza virus with unspecified type of pneumonia; R65.10 Systemic inflammatory response syndrome (SIRS) of non-infectious origin without acute organ dysfunction; M15.9 Polyosteoarthritis, unspecified; Z96.651 Presence of right artificial knee joint; Z88.8 Allergy status to other drugs, medicaments and biological substances; Z85.6 Personal history of leukemia; Z82.5 Family history of asthma and other chronic lower respiratory diseases; Z82.49 Family history of ischemic heart disease and other diseases of the circulatory system; Z82.3 Family history of stroke; Z90.710 Acquired absence of both cervix and uterus
CPT/HCPCS: 36415; 71045; 80053; 83605; 83735; 85025; 85027; 87040; 87804; 94640; 96365; 96375; 96376; J1956; J2405; J2920; J2930; J7512; J7620; 99285-25; J7030

== ENCOUNTER → 2019-05-03 | Outpatient (CLI) | payer MEDICARE ==
[~2019-05-03] MED LIST: ALBU2.5V5 INH; CYCL-331 PO; FAMO40TA4 PO; LEVO750T5 PO; OSEL75CA PO; PROAIR RESPICL90 MCG INH; TRAZ-125 PO
--- NOTE | 2019-05-03 13:03 | RAD ---
EXAM: THYROID ULTRASOUND. HISTORY: Thyroid nodules. Palpable focus at the right parotid gland. COMPARISON: 03/01/2018. FINDINGS: Sonographic evaluation of the palpable foci at the parotid glands was performed. This reveals normal thyroid parenchyma without a clear underlying focal lesion. The left parotid gland was imaged for comparison and also appears normal. Sonographic evaluation of the thyroid gland was performed and evaluated using ACR TI-RADS criteria. Right lobe: The right lobe measures 4.8 x 2.2 x 1.9 cm. The parenchyma is homogeneous. Left lobe: The left lobe measures 5.2 x 2.8 x 2.3 cm. The parenchyma is homogeneous. Isthmus: The isthmus measures 3.5 mm. Nodule #: 1. Maximum size: 2.7 cm; Other 2 dimensions 2.4 x 1.7 cm. Location Left lobe; mid pole. Previously 2.0 x 1.7 x 1.6 cm. It contains a central coarse calcification. ACR TI-RADS risk category: TR4 (4-6 points): FNA if 1.5 cm, follow-up if 1-2.4 cm in 1, 2, 3, and 5 years. Significant change in size (>= 20% in two dimensions and minimal increase of 2 mm): Yes. Change in features: No. Change in ACR TI-RADS risk category: No. Nodule #: 2. Maximum size: 2.0 cm; Other 2 dimensions 1.4 x 1.4 cm. Location Right lobe; mid pole. Previously 1.7 x 1.3 x 1.1. ACR TI-RADS risk category: TR3 (3 points): FNA if 2.5 cm, follow-up if 1.5-2.4 cm in 1, 3, and 5 years. Significant change in size (>= 20% in two dimensions and minimal increase of 2 mm): No. Change in features: No. Change in ACR TI-RADS risk category: No. ACR TI-RADS RECOMMENDATION: 1. The left TR4 has increased in size since the prior study. Ultrasound-guided fine-needle aspiration is recommended if benignity is not already known. 2. The right TR3 nodule can be followed sonographically in one year. 3. The site of palpable concern on the right corresponds with the parotid gland which is otherwise sonographically unremarkable. Recommend ongoing clinical follow-up of palpable foci. Electronically signed by: Alberto Justin MD (05/03/2019 1:01 PM) [facility]
== END | disposition home or self-care (01) ==
LOC: US 08:40
PROVIDERS: ATTEND Otolaryngology
DX: E04.1 Nontoxic single thyroid nodule (principal)
CPT/HCPCS: 76536

== ENCOUNTER → 2019-05-03 | Outpatient (CLI) | payer MEDICARE ==
--- NOTE | 2019-05-03 16:17 | RAD ---
CHEST PA LATERAL INDICATION: Dyspnea, wheezing. COMPARISON STUDY: 03/28/2019. FINDINGS: Lungs: Normal lung volume. No pulmonary mass or consolidation. The tracheobronchial tree and hilar structures are normal. Pleura: No pleural effusion or pneumothorax. Heart and Mediastinum: The cardiomediastinal silhouette is normal. The great vessels of the thorax are normal. Bones and Soft Tissues: Degenerative changes of the spine. IMPRESSION: No consolidation. Electronically signed by: Santy Ruvalcaba MD (05/03/2019 4:14 PM) [id number]
== END | disposition home or self-care (01) ==
LOC: DXRAD 10:06
PROVIDERS: ATTEND Physician Assistant Medical
DX: R06.02 Shortness of breath (principal); M47.814 Spondylosis without myelopathy or radiculopathy, thoracic region
CPT/HCPCS: 71046

== ENCOUNTER → 2019-05-31 | Outpatient (CLI) | payer MEDICARE ==
--- NOTE | 2019-05-31 12:50 | RAD ---
CHEST PA LATERAL Clinical indications: Shortness of air. COMPARISON: May 03, 2019. Findings: Chronic bilateral interstitial lung infiltrates or chronic peribronchial thickening is seen. No new lung infiltrate or pleural effusion or lung mass or pneumothorax is seen. The heart size, pulmonary vasculature, mediastinum and both rashi are unremarkable. The osseous structures appear intact. Impression: No new radiographic abnormality is seen. Chronic interstitial lung disease or chronic bronchitis. Electronically signed by: Giorgio Treadwell MD (05/31/2019 12:47 PM) [id number]
== END | disposition home or self-care (01) ==
LOC: PMG 07:59
PROVIDERS: ATTEND Physician Assistant Medical
DX: R06.00 Dyspnea, unspecified (principal)
CPT/HCPCS: 71046

== ENCOUNTER → 2019-06-05 | Outpatient (CLI) | payer MEDICARE ==
--- NOTE | 2019-06-05 12:56 | RAD ---
CT CHEST WO CONTRAST Indication: Cough, congestion, shortness of air, wheezing Technique: Noncontrast CT imaging was performed of the chest, multiplanar reconstruction images submitted. One or more of the following individualized dose reduction techniques were utilized for this examination: 1. Automated exposure control 2. Adjustment of the mA and/or kV according to patient size 3. Use of iterative reconstruction technique. Comparison: None Findings: There is some motion. There is no lobar consolidation. There is no pleural or pericardial fluid or pneumothorax. There is coronary calcification. Thoracic aortic caliber is within normal limits. There is no significant lymphadenopathy of the chest. There is a small 0.4 cm nodule of the lateral right middle lobe due to 3 series 2. There are some tiny micronodules at the right lung base of the right middle and right lower lobe such as seen on images 60 through 63. There are small subpleural left lower lobe nodule image 35 series 2 about 0.4 cm. There is a small dense left upper lobe nodule about 0.2 cm image 21 series 2. There is calcified left lower lobe nodule image 56. There is hepatic steatosis. There is multilevel thoracic spondylosis.. There is hypodense lesion of the left thyroid gland about 2.3 cm AP by 1.9 cm transverse, focus on the right estimated about 1.5 cm AP by 1.3 cm transverse. IMPRESSION: 1. There is no lobar infiltrate or pleural fluid. There are some small pulmonary nodules as stated, some small foci at the right lung base in a pattern more suggestive of sequela of postinflammatory postinfectious etiology. Regarding the small nodules, optional 12 month follow-up could be performed as per revised Fleischner guidelines for nodules of this size, no additional follow-up needed if low risk factors. 2. There is hepatic steatosis. 3. There is coronary calcification. 4. There are bilateral thyroid nodules as seen on recent thyroid ultrasound May 03, 2019. Electronically signed by: Santy Polk MD (06/05/2019 12:53 PM) [id number]
== END | disposition home or self-care (01) ==
LOC: CT 10:48
PROVIDERS: ATTEND Physician Assistant Medical
DX: R91.8 Other nonspecific abnormal finding of lung field (principal); I25.10 Atherosclerotic heart disease of native coronary artery without angina pectoris; M47.814 Spondylosis without myelopathy or radiculopathy, thoracic region; K76.0 Fatty (change of) liver, not elsewhere classified; E04.2 Nontoxic multinodular goiter
CPT/HCPCS: 71250

== ENCOUNTER → 2019-11-11 | Outpatient (CLI) | payer MEDICARE ==
--- NOTE | 2019-11-11 09:34 | RAD ---
EXAM: Thyroid Ultrasound INDICATION: Reason: THYROID NODULE / Spl. Instructions: / History: ? TECHNIQUE: Real-time ultrasound of the thyroid was performed with permanent freeze-frame documentation. COMPARISON: Thyroid ultrasounds of 05/03/2019 and 03/01/2018. ? FINDINGS: THYROID: Thyroid gland is homogenous in echogenicity but contains nodules in both lobes. ? Right Lobe: 4.7 x 1.8 x 2.1 cm. Nodule #1. Maximum size: 2.0 cm; Other 2 dimensions 1.4 x 1.3 cm. Location: Superficial right midpole. The mass is isoechoic (1), wider than tall, has smooth margins and is almost completely solid (2) with no echogenic foci. ACR TI-RADS risk category: TR3 (3 points): FNA if 2.5 cm, follow-up if 1.5-2.4 cm in 1, 3, and 5 years. Significant change in size (>= 20% in two dimensions and minimal increase of 2 mm): No. Change in features: No. Change in ACR TI-RADS risk category: No. Left Lobe: 4.8 x 2.8 x 2.1 cm. Nodule #2. Maximum size: 2.7 cm; Other 2 dimensions 2.6 x 1.8 cm. Location: Midpole. This nodule is solid (2), isoechoic (1), wider than tall, smooth margined, and has macrocalcifications (1) ACR TI-RADS risk category: TR4 (4-6 points): FNA if 1.5 cm, follow-up if 1-1.4 cm in 1, 2, 3, and 5 years. Significant change in size (>= 20% in two dimensions and minimal increase of 2 mm): No. Change in features: No. Change in ACR TI-RADS risk category: No. ? Isthmus: 0.4 cm. ?? No significant change in bilateral thyroid nodules. ? OTHER: No evidence of adjacent cervical adenopathy. ? IMPRESSION: ? 1. No change in bilateral thyroid nodules from approximately 6 months ago. By report, these have both been biopsied with benign results. 2. Recommend ultrasound follow-up of both nodules at the 3 year sony from the first known thyroid ultrasound examination (which is to my knowledge, that of 03/01/2018). Thus, follow-up in March 2021 is recommended. Electronically signed by: Marybeth Stahl MD (11/11/2019 9:31 AM) [id number]
== END | disposition home or self-care (01) ==
LOC: US 07:50
PROVIDERS: ATTEND Otolaryngology
DX: E04.2 Nontoxic multinodular goiter (principal)
CPT/HCPCS: 76536

== ENCOUNTER → 2020-01-06 | Outpatient (CLI) | payer MEDICARE ==
--- NOTE | 2020-01-06 13:05 | RAD ---
ELBOW LEFT 3V DATE: 01/06/2020 12:00 AM INDICATION: LEFT ELBOW PAIN COMPARISON: None. FINDINGS: Bones: There is no evidence of acute fracture or dislocation. Joints: The joint spaces are normal. There is no joint effusion. Miscellaneous: None. IMPRESSION: No acute osseous abnormality. Electronically signed by: Santy Ruvalcaba MD (01/06/2020 1:02 PM) [id number]
== END | disposition home or self-care (01) ==
LOC: PMG 10:34
PROVIDERS: ATTEND Physician Assistant Medical
DX: M25.522 Pain in left elbow (principal)
CPT/HCPCS: 73080

== ENCOUNTER → 2020-02-17 | Outpatient (CLI) | payer MEDICARE ==
--- NOTE | 2020-02-17 09:50 | RAD ---
DATE: 02/17/2020 8:30 AM EXAM: MAMMO LAN SCREENING BILATERAL HISTORY: Screening COMPARISON: 02/13/2019, 07/12/2017 Bilateral CC and MLO views of the breasts were performed. Bilateral breast tomosynthesis was performed in CC and MLO projections. This study was interpreted with the benefit of Computerized Aided Detection (CAD). FINDINGS: Breast Density: HETERO The breast parenchyma Is heterogeneously dense, which could reduce sensitivity of mammography. Breast parenchyma level C No suspicious masses, microcalcifications or architectural distortion is present to suggest malignancy in either breast. The visualized axillae are unremarkable. IMPRESSION: No mammographic evidence of malignancy. BI-RADS CATEGORY: 1 NEGATIVE RECOMMENDED FOLLOW-UP: 12M 12 MONTH FOLLOW-UP Annual screening mammography is recommended, unless clinically indicated sooner based on symptoms or change in physical exam. PQRS compliance statement: Patient information was entered into a reminder system with a target due date for the next mammogram. Mammography is a sensitive method for finding small breast cancers, but it does not detect them all and is not a substitute for careful clinical examination. A negative mammogram does not negate a clinically suspicious finding and should not result in delay in biopsying a clinically suspicious abnormality. "Our facility is accredited by the [employer] Mammography Program."
== END ==
LOC: MAMMO 08:04
PROVIDERS: ATTEND Physician Assistant Medical
DX: Z12.31 Encounter for screening mammogram for malignant neoplasm of breast (principal)
CPT/HCPCS: 77063; 77067

== ENCOUNTER → 2021-02-18 | Outpatient (CLI) | payer MEDICARE ==
[~2021-02-18] MED LIST changes: -CYCL-331 PO; +CYCL10TA19 PO
--- NOTE | 2021-02-19 08:37 | RAD ---
DATE: 02/18/2021 EXAM: MG BILAT SCREEN+LAN HISTORY: Screening study COMPARISON: Prior exams including one of 02/17/2020. This study was interpreted with the benefit of Computerized Aided Detection (CAD). FINDINGS: The breast parenchyma density category C. Bilateral nodularity appears stable. No new discrete or dominant mass is seen, and there are no susp icious calcifications. IMPRESSION: Stable appearance without evidence of malignancy. BI-RADS CATEGORY: 2 BENIGN FINDING RECOMMENDED FOLLOW-UP: Follow-up mammogram in 1 year is recommended. PQRS compliance statement: Patient information was entered into a reminder system with a target due d ate for the next mammogram. Mammography is a sensitive method for finding small breast cancers, but it does not detect them all a nd is not a substitute for careful clinical examination. A negative mammogram does not negate a clin ically suspicious finding and should not result in delay in biopsying a clinically suspicious abnorma lity. "Our facility is accredited by the [employer] Mammography Program." Electronically signed by: Josesito Torres Jr., MD (02/19/2021 8:34 AM) [id number]
== END ==
LOC: MAMMO 09:09
PROVIDERS: ATTEND Physician Assistant Medical
DX: Z12.31 Encounter for screening mammogram for malignant neoplasm of breast (principal)
CPT/HCPCS: 77063; 77067

== ENCOUNTER → 2021-03-17 | Outpatient (CLI) | payer MEDICARE ==
--- NOTE | 2021-03-17 10:08 | RAD ---
US THYROID History: Reason: THYROID NODULE / Spl. Instructions: / History: Comparison: November 11, 2019 Technique: Multiple grayscale and color Doppler images of the thyroid gland were obtained. Findings: Right thyroid lobe: 4.9 x 2.1 x 2.2 cm. Homogeneous echotexture. Left thyroid lobe: 5.5 x 2.5 x 2.3 cm. Homogeneous echotexture. Isthmus: 0.3 cm. -Solid heterogeneous right mid thyroid nodule measures 2.2 x 1.6 x 1.4 cm. TI-RADS 3. Reportedly prev iously biopsied. Similar overall size compared to prior. -Solid heterogeneous predominantly hypoechoic left inferior thyroid nodule measures 2.9 x 2.3 x 1.9 c m. Potential calcifications. TI-RADS 4. Reportedly previously biopsied. Similar overall size compared to prior. ACR Thyroid Imaging, Reporting And Data System (TI-RADS): White Paper Of The ACR TI-RADS Committee. J ournal of the [employer], volume 14, issue 5, pages 587-595 (August 2016). IMPRESSION: 1. Bilateral thyroid nodules, similar overall appearance in size compared to prior. Reportedly previ ously biopsied. Electronically signed by: Ezequiel Del Rosario DO (03/17/2021 10:06 AM) [id number]
== END ==
LOC: US 07:45
PROVIDERS: ATTEND Otolaryngology
DX: E04.2 Nontoxic multinodular goiter (principal)
CPT/HCPCS: 76536

== ENCOUNTER → 2021-03-24 | Outpatient (CLI) | payer MEDICARE ==
--- NOTE | 2021-03-24 11:11 | RAD ---
EXAM: Abdomen sonogram. HISTORY: Pain. TECHNIQUE: Sonographic imaging of the abdomen was performed. COMPARISON: None. FINDINGS: There is hepatomegaly and hepatic steatosis. There is focal fatty sparing along the gallbla dder fossa. No focal hepatic lesion is seen. The common bile duct is normal in caliber. The gallbladd er is unremarkable. The right kidney is unremarkable. The pancreas and inferior vena cava are unremar kable. IMPRESSION: 1. Hepatomegaly and hepatic steatosis. There is fatty sparing along the gallbladder fossa. 2. No acute sonographic finding. Electronically signed by: Kenia Bustillos MD (03/24/2021 11:09 AM) [id number]
== END ==
LOC: US 10:34
PROVIDERS: ATTEND Physician Assistant Medical
DX: K76.0 Fatty (change of) liver, not elsewhere classified (principal)
CPT/HCPCS: 76705

== ENCOUNTER → 2021-04-08 | Outpatient (CLI) | payer MEDICARE ==
--- NOTE | 2021-04-08 08:34 | RAD ---
Examination: CT of the abdomen pelvis without contrast HISTORY: History of epigastric abdominal pain COMPARISON: None available TECHNIQUE: Axial CT images of the abdomen pelvis were performed without contrast. Coronal and sagitta l reformats are performed Exposure: One or more of the following individualized dose reduction techniques were utilized for thi s examination: 1. Automated exposure control 2. Adjustment of the mA and/or kV according to patient size 3. Use of iterative reconstruction technique FINDINGS: The bibasilar lungs are clear. No evidence of free air identified in the abdomen. The evaluation of the solid organs is limited due to lack of IV contrast. The evaluation of bowel is limited due to lack of oral contrast. Mild degree attenuation likely hepatic steatosis. The spleen, a drenals grossly appears unremarkable. There is mildly distended. The stomach is mildly distended with visualized pancreas grossly appears unremarkable. The small bowel is nondilated. Feces and gas noted in the colon. No evidence of intrarenal collecting system calculi or hydronephrosis. Mild degenerati ve changes lumbar spine IMPRESSION: 1. No acute intra-abdominal findings. 2. Mild hepatic steatosis. Electronically signed by: Amarjit Cole MD (04/08/2021 8:32 AM) [id number]
== END ==
LOC: CT 07:45
PROVIDERS: ATTEND Physician Assistant Medical
DX: K76.0 Fatty (change of) liver, not elsewhere classified (principal); K31.89 Other diseases of stomach and duodenum; M47.816 Spondylosis without myelopathy or radiculopathy, lumbar region
CPT/HCPCS: 74176

== ENCOUNTER 2021-06-01 21:59 | Emergency (ER) | payer MEDICARE ==
[~2021-06-01] VITALS: Ht 154.9 cm; Wt 105.0 kg
--- NOTE | 2021-06-01 22:05 | PHYS DOC ---
Past History Past Medical History: Asthma, Other Additional Past Medical Histor: Leukemia Past Surgical History: Hysterectomy, Other Additional Past Surgical Histo: R Knee Alcohol Use: None Drug Use: None Adult General HPI HPI Patient is a 56-year-old female who presents with shoulder pain and numbness that started this morning after she woke up. States she did sleep on her left side. States has had a little bit of tingling in her fingers and a little bit of weakness in her left arm but can move her arm. Denies any recent travel, traumas of illness, fevers, chest pain, shortness of breath, abdominal pain. Denies any numbness/weakness/tingling anywhere else. Denies any trouble sitting, standing or walking. Denies any slurring of speech or confusion. Denies any trouble making urine or stool. Denies alcohol or drug use. Review of Systems Review of Systems Review of systems otherwise unremarkable except noted in HPI Allergies Allergies Allergies Coded Allergies Type Severity Reaction Last Updated Verified Sulfa (Sulfonamide Antibiotics) Allergy Intermediate RASH 06/05/18 Yes aspirin Allergy Intermediate Rash 06/05/18 Yes Physical Exam Physical Exam Constitutional: Well developed, well nourished, no acute distress, non-toxic appearance. [] HENT: Normocephalic, atraumatic, bilateral external ears normal, oropharynx moist, no oral exudates, nose normal. [] Eyes: conjunctiva normal, no discharge. [] Neck: Normal range of motion, no tenderness, supple, no stridor. [] Cardiovascular:Heart rate regular rhythm, no murmur [] Lungs & Thorax: Bilateral breath sounds clear to auscultation [] Skin: Warm, dry, no erythema, no rash. Extremities: Neurovascular exam intact, no tenderness, no cyanosis, no clubbing, ROM intact, no edema. [] Neurologic: Alert and oriented X 3, normal motor function, normal sensory function, able to sit, stand and walk without issue no focal deficits noted. [] Psychologic: Affect normal, judgement normal, mood normal. [] EKG EKG [] Radiology/Procedures Radiology/Procedures [] Heart Score C/O Chest Pain: No Risk Factors: Risk Factors: DM, Current or recent (<one month) smoker, HTN, HLP, family history of CAD, obesity. Risk Scores: Risk Factors: DM, Current or recent (<one month) smoker, HTN, HLP, family history of CAD, obesity. Course & Med Decision Making Course & Med Decision Making Patient is a 56-year-old female presents with shoulder pain and numbness Vital signs notable for mild hypertension. Physical exam noted above. Patient's exam and history suggestive of musculoskeletal/mild nerve damage with stroke on the differential but seems less likely as exam was completely normal for me in the room and patient noted falling asleep on her left arm last night as she sleeps on her left side and waking up with this. Discussed differential diagnosis with family. Advised to follow-up in the morning with primary care physician to discuss her ED visit. Gave strict return precautions to the ED. Family grateful, verbalized understanding and agreed with plan of discharge. [] Dragon Disclaimer Dragon Disclaimer This electronic medical record was generated, in whole or in part, using a voice recognition dictation system. Departure Departure: Impression: Primary Impression: Paresthesia Disposition: HOME / SELF CARE / HOMELESS Referrals: MARY MILLS (PCP) Patient Instructions: Paresthesia Additional Instructions: Thank you for coming into the emergency department tonight and allowing us to take care of you. Please read the attached information carefully to go over things that we discussed. Please follow-up in the morning with your primary care physician update on your ED visit and discussed your hypertension and risk factors that she have for cardiovascular disease. Please come back to the emergency department immediately with any of those symptoms we discussed return if you have any new or concerning symptoms. SOL CALLAHAN MD Jun 01, 2021 22:05
[2021-06-01 22:54] VITALS: BP 142/76
== END 2021-06-01 22:55 | disposition home or self-care (01) ==
LOC: ER 21:59
DX: R20.2 Paresthesia of skin (principal); M25.519 Pain in unspecified shoulder; R53.1 Weakness; J45.909 Unspecified asthma, uncomplicated; Z88.2 Allergy status to sulfonamides; Z88.6 Allergy status to analgesic agent
CPT/HCPCS: 99281